=== PATIENT | male | born 1995 ===

== ENCOUNTER 2024-04-19 15:14 | Emergency (ER) | payer MEDICAID ==
[~2024-04-19] VITALS: Ht 177.8 cm; Wt 75.0 kg
[2024-04-19 15:27] VITALS: TEMP 97.7; O2SAT 99
[2024-04-19] MEDS ORDERED: IBUP-2030 MT (16:23)
[2024-04-19 16:30] VITALS: BP 146/90; PULSE 98; RESP 17
[2024-04-19] MEDS: OXYCODONE HCL/ACETAMINOPHEN 5/325MG TABLET PO ONE (16:30)
[2024-04-19] MEDS: KETOROLAC 30MG/ML VIAL IM ONE (16:30)
== END 2024-04-19 19:25 | disposition home or self-care (01) ==
LOC: ER 15:14
DX: S62.202A Unspecified fracture of first metacarpal bone, left hand, initial encounter for closed fracture (principal); W18.30XA Fall on same level, unspecified, initial encounter; Y93.89 Activity, other specified; Y92.89 Other specified places as the place of occurrence of the external cause; Y99.8 Other external cause status
CPT/HCPCS: 99283; 73120; 29125; 96372; J1885